=== PATIENT | male | born 2000 | race Two or more races ===

== ENCOUNTER 2021-08-03 22:07 | Emergency (ER) | payer OTHER ==
[~2021-08-03] VITALS: Ht 170.2 cm; Wt 64.4 kg
[2021-08-03] MEDS ORDERED: TETANUS-DIPTH-ACEL PERTUSSIS 0.5ML SYR Tdap IM ONE (22:30)
[2021-08-03] MEDS ORDERED: TETANUS IMMUNE GLOBULIN 250 UNIT/ML SYRG IM ONE (22:30)
[2021-08-03 22:45] VITALS: BP 118/72
== END 2021-08-03 22:48 | disposition home or self-care (01) ==
LOC: ER 22:07
DX: S00.83XA Contusion of other part of head, initial encounter (principal); X58.XXXA Exposure to other specified factors, initial encounter; Y93.89 Activity, other specified; Y92.89 Other specified places as the place of occurrence of the external cause; Y99.8 Other external cause status
CPT/HCPCS: 90471; 90715